=== PATIENT | female | born 1970 ===

== ENCOUNTER 2018-04-08 09:10 | Emergency (ER) | payer MEDICAID ==
[2018-04-08 09:26] VITALS: BMI 19.2
[2018-04-08 09:31] VITALS: RESP 18
[2018-04-08 09:55] LABS: URINE APPEARANCE SL CLOUDY (CLEAR); URINE BILIRUBIN NEGATIVE (NEGATIVE); URINE BLOOD SMALL (NEGATIVE); URINE COLOR YELLOW (YELLOW); URINE GLUCOSE (UA) NEGATIVE (NEGATIVE); URINE LEUKOCYTE ESTERASE NEGATIVE Leu/uL (NEGATIVE); URINE PROTEIN NEGATIVE mg/dL (<30 mg/dL); URINE UROBILINOGEN 0.2 E.U./dL (<1 E.U./dL)
[2018-04-08 10:04] LABS: URINE RBC 0 - 2 /hpf (0-2)
--- NOTE | 2018-04-08 11:14 | CT ---
Date of service: 2018-04-08 10:18:35 PROCEDURE: CT Abdomen and Pelvis. HISTORY: Back pain. COMPARISON: None. TECHNIQUE: Contiguous axial images of the abdomen and pelvis performed in standard fashion without oral or intravenous contrast material. Additional 2D sagittal and coronal reformats generated. Radiation dose: Total exam DLP = 206.81 mGy-cm. This CT exam was performed using one or more of the following dose reduction techniques: Automated exposure control, adjustment of the mA and/or kV according to patient size, and/or use of iterative reconstruction technique. FINDINGS: LOWER THORAX: Lung bases are clear. No infiltrate effusion or basilar pneumothorax. Heart size within range of normal. No significant pericardial effusion. There is a small hiatal hernia. LIVER: Liver is mildly enlarged measuring approximately 19 cm in CC dimension. No obvious hepatic mass or collection seen on this noncontrast exam.. No obvious hepatic calcifications. GALLBLADDER AND BILE DUCTS: Gallbladder physiologically distended. No evidence of intraluminal gallbladder calculi. PANCREAS: The pancreas is unremarkable without mass collection or calcification. SPLEEN: Spleen exhibits normal size and attenuation pattern without mass collection or calcification. ADRENALS: There are no adrenal lesions seen. KIDNEYS AND URETERS: Kidneys demonstrate relatively symmetric size. No evidence of nephrolithiasis or hydronephrosis. BLADDER: Urinary bladder is physiologically distended. No intraluminal urinary bladder calculi. REPRODUCTIVE: Unremarkable as visualized. APPENDIX: Appearing appendix. BOWEL: Evaluation of the bowel is limited due to the lack of oral contrast material. Stomach is incompletely distended with slight thick-walled appearance. Visualized loops of small bowel exhibit normal contour and caliber. No evidence of acute mechanical small bowel obstruction. There is a moderate amount of stool within the cecum and at ascending as well as transverse colon consistent with mild fecal retention. No definitive evidence of mural wall thickening. PERITONEUM: Unremarkable. No fluid collection. No free air. Small fat containing umbilical hernia. LYMPH NODES: Unremarkable. No enlarged lymph nodes. VASCULATURE: Unremarkable. No aortic aneurysm. No aortic atherosclerotic calcification or mural plaque present. BONES: Minor multilevel degenerative spondylosis of the lower thoracic and lumbar spine. There are no acute compression fractures nor retropulsed fragments. OTHER FINDINGS: None. IMPRESSION: No acute intra abdominal pathology. No evidence of nephrolithiasis or hydronephrosis.. Findings suggest mild fecal retention/constipation as detailed above.
--- NOTE | 2018-04-08 11:17 | ED PDOC ---
Arrival/HPI - General Chief Complaint: Back Pain Time Seen by Provider: 04/08/18 09:27 Historian: Patient - History of Present Illness Narrative History of Present Illness (Text): 04/08/18 10:58 48yo female present with complaint of back pain x one week. States she had similar pain 4months ago and was told by another Emergency department that she had UTI. States pain is not exacerbated or relieved by anything. Did not take any medication. Denies hematuria, fever, chills, urinary symptoms, abdominal pain, trauma, urinary/fecal incontinence, saddle anesthesia, any other complaint. Past Medical History - Provider Review Nursing Documentation Reviewed: Yes - Infectious Disease Hx of Infectious Diseases: None - Reproductive Currently : No - Pulmonary Hx Asthma: Yes - Psychiatric Hx Anxiety: Yes Hx Substance Use: Yes Family/Social History - Physician Review Nursing Documentation Reviewed: Yes Family/Social History: Unknown Family HX Smoking Status: Never Smoked Hx Alcohol Use: No Hx Substance Use: Yes Substance used: marijuana Allergies/Home Meds Allergies/Adverse Reactions: Allergies No Known Allergies Allergy (Verified 04/08/18 09:26) Review of Systems - Physician Review All systems were reviewed & negative as marked: Yes - Review of Systems Constitutional: Normal Eyes: Normal ENT: Normal Respiratory: Normal Cardiovascular: Normal Gastrointestinal: Normal Genitourinary Female: Normal Musculoskeletal: Back Pain Skin: Normal Neurological: Normal Endocrine: Normal Hemo/Lymphatic: Normal Psychiatric: Normal Physical Exam Vital Signs Reviewed: Yes Vital Signs Temp Pulse Resp BP Pulse Ox 04/08/18 09:30 98.8 F 56 L 18 120/79 100 Temperature: Afebrile Blood Pressure: Normal Pulse: Regular Respiratory Rate: Normal Appearance: Positive for: Well-Appearing, Non-Toxic, Comfortable Pain Distress: None Mental Status: Positive for: Alert and Oriented X 3 - Systems Exam Head: Present: Atraumatic, Normocephalic Pupils: Present: PERRL Extroacular Muscles: Present: EOMI Conjunctiva: Present: Normal Mouth: Present: Moist Mucous Membranes Neck: Present: Normal Range of Motion Respiratory/Chest: Present: Clear to Auscultation, Good Air Exchange. No: Respiratory Distress, Accessory Muscle Use Cardiovascular: Present: Regular Rate and Rhythm, Normal S1, S2. No: Murmurs Abdomen: No: Tenderness, Distention, Peritoneal Signs Back: Present: Paraspinal Tenderness (B/L paraspinous area). No: CVA Tenderness, Midline Tenderness, Pain with Leg Raise Upper Extremity: Present: Normal Inspection. No: Cyanosis, Edema Lower Extremity: Present: Normal Inspection. No: Edema Neurological: Present: GCS=15, CN II-XII Intact, Speech Normal Skin: Present: Warm, Dry, Normal Color. No: Rashes Psychiatric: Present: Alert, Oriented x 3, Normal Insight, Normal Concentration Medical Decision Making ED Course and Treatment: 04/10/18 01:46 PT presented to ED for stated history. She was not in any distress. Hemodynamically stable Her pain was controlled in ED she had moderate blood in her UA and abdominal/pelvic Ct was ordered to r/o kidney stone Abdominal pelvic CT was negative for kidney stone Result was DW the pt and she was Dc home with NSAID and referred to ortho - Lab Interpretations Lab Results: Urine Color Yellow (YELLOW) 04/08/18 09:30 Urine Appearance Sl cloudy (CLEAR) 04/08/18 09:30 Urine pH 6.0 (4.7-8.0) 04/08/18 09:30 Ur Specific [place] 1.025 (1.005-1.035) 04/08/18 09:30 Urine Protein Negative mg/dL (<30 mg/dL) 04/08/18 09:30 Urine Glucose (UA) Negative mg/dL (NEGATIVE) 04/08/18 09:30 Urine Ketones Negative mg/dL (NEGATIVE) 04/08/18 09:30 Urine Blood Small (NEGATIVE) H 04/08/18 09:30 Urine Nitrate Negative (NEGATIVE) 04/08/18 09:30 Urine Bilirubin Negative (NEGATIVE) 04/08/18 09:30 Urine Urobilinogen 0.2 E.U./dL (<1 E.U./dL) 04/08/18 09:30 Ur Leukocyte Esterase Negative Bucky/uL (NEGATIVE) 04/08/18 09:30 Urine RBC 0 - 2 /hpf (0-2) 04/08/18 09:30 Urine WBC None /hpf (0-6) 04/08/18 09:30 - RAD Interpretation Radiology Orders: 04/08/18 09:58 ABD & PELVIS W/O PO OR IV CONT [CT] Stat - Medication Orders Current Medication Orders: Discontinued Medications Ibuprofen (Motrin Tab) 600 mg PO STAT STA Stop: 04/08/18 09:37 Last Admin: 04/08/18 09:45 Dose: 600 mg MAR Pain/Vitals Document 04/08/18 09:45 GMD (Rec: 04/08/18 09:45 [place] [facility] [place] Pain Reassessment Is This A Pain ReAssessment? No Disposition/Present on Arrival - Present on Arrival Any Indicators Present on Arrival: No History of DVT/PE: No History of Uncontrolled Diabetes: No Urinary Catheter: No History of Decub. Ulcer: No History Surgical Site Infection Following: None - Disposition Have Diagnosis and Disposition been Completed?: Yes Diagnosis: Back pain Disposition: HOME/ ROUTINE Disposition Time: 11:20 Patient Plan: Discharge Condition: STABLE Discharge Instructions (ExitCare): Low Back Pain (DC) Additional Instructions: Follow up with your Doctor/orthopedist Return to Emergency department for any new or worsening symptoms Prescriptions: Cyclobenzaprine [Cyclobenzaprine HCl] 10 mg PO BID #10 tab RX: Ibuprofen [Motrin Tab] 600 mg PO Q6 #20 tab Referrals: Alex Cabezas III, MD [Medical Doctor] - Follow up with primary Forms: [employer] (Slovenian)
[2018-04-08 11:33] VITALS: BP 125/64; PULSE 69; TEMP 98.6; O2SAT 98
== END 2018-04-08 11:36 | disposition home or self-care (01) ==
LOC: ED 09:10
DX: M54.9 Dorsalgia, unspecified (principal)

== ENCOUNTER 2018-05-24 11:51 | Emergency (ER) | payer SELFPAY ==
[2018-05-24 11:51] VITALS: BMI 19.2
[2018-05-24 12:22] VITALS: BP 127/75; PULSE 98; RESP 18; TEMP 98.2; O2SAT 96
--- NOTE | 2018-05-24 12:39 | ED PDOC ---
Arrival/HPI - General Chief Complaint: Anxiety Time Seen by Provider: 05/24/18 11:53 - History of Present Illness Narrative History of Present Illness (Text): Patient reports feeling gradually anxious, states that she has been out of her anxiety meds for 4 months, cannot get a refill because she moved to [place] from [facility]. She cannot remember what medication she takes but states "it starts with oxy something". Denies SI/HI. Also reports history of asthma but denies any respiratory symptoms. Past Medical History - Provider Review Nursing Documentation Reviewed: Yes SANG Report Viewed: Yes - Travel History Have you recently traveled outside [place] w/in the past 3 mons?: No - Infectious Disease Hx of Infectious Diseases: None - Reproductive Menopause: No - Cardiac Hx Cardiac Disorders: No - Pulmonary Hx Asthma: Yes - Psychiatric Hx Anxiety: Yes Hx Substance Use: Yes Family/Social History - Physician Review Nursing Documentation Reviewed: Yes Family/Social History: Unknown Family HX Smoking Status: Never Smoked Hx Alcohol Use: No Hx Substance Use: Yes Substance used: marijuana Allergies/Home Meds Allergies/Adverse Reactions: Allergies No Known Allergies Allergy (Verified 04/08/18 09:26) Review of Systems - Review of Systems Constitutional: Normal Respiratory: Normal Cardiovascular: Normal Gastrointestinal: Normal Musculoskeletal: Normal Skin: Normal Psychiatric: Anxiety. absent: Suicidal Ideation Physical Exam Vital Signs Reviewed: Yes Vital Signs Temp Pulse Resp BP Pulse Ox 05/24/18 12:17 98.2 F 98 H 18 127/75 96 05/24/18 11:51 98.2 F 98 H 18 127/75 96 Temperature: Afebrile Blood Pressure: Normal Pulse: Regular Respiratory Rate: Normal Appearance: Positive for: Non-Toxic Mental Status: Positive for: Alert and Oriented X 3 - Systems Exam Head: Present: Atraumatic, Normocephalic Pupils: Present: PERRL Extroacular Muscles: Present: EOMI Conjunctiva: Present: Normal Mouth: Present: Moist Mucous Membranes Respiratory/Chest: Present: Clear to Auscultation Cardiovascular: Present: Regular Rate and Rhythm Abdomen: No: Tenderness, Rebound, Guarding Upper Extremity: Present: Normal Inspection Lower Extremity: Present: Normal Inspection Neurological: Present: GCS=15 Skin: Present: Warm, Dry Psychiatric: Present: Alert, Oriented x 3, Anxious Medical Decision Making ED Course and Treatment: Patient given 0.5mg Xanax PO. Denies SI/HI. Referred to behavioral health as outpatient. Stable for discharge. Disposition/Present on Arrival - Present on Arrival Any Indicators Present on Arrival: No History of DVT/PE: No History of Uncontrolled Diabetes: No Urinary Catheter: No History of Decub. Ulcer: No History Surgical Site Infection Following: None - Disposition Have Diagnosis and Disposition been Completed?: Yes Diagnosis: Anxiety Disposition: HOME/ ROUTINE Disposition Time: 13:00 Condition: STABLE Discharge Instructions (ExitCare): Anxiety, Adult (DC) Additional Instructions: FELICITA MARSH, thank you for letting us take care of you today. Your provider was Jina Nicholas MD and you were treated for anxiety. The emergency medical care you received today was directed at your acute symptoms. If you were prescribed any medication, please fill it and take as directed. It may take several days for your symptoms to resolve. Return to the Emergency Department if your symptoms worsen, do not improve, or if you have any other problems. Please contact your doctor or call one of the physicians/clinics you have been referred to that are listed on the Patient Visit Information form that is included in your discharge packet. Bring any paperwork you were given at discharge with you along with any medications you are taking to your follow up visit. Our treatment cannot replace ongoing medical care by a primary care provider outside of the emergency department. Thank you for allowing the [facility] team to be part of your care today. If you had an X-Ray or CT scan: A Radiologist will review the ED reading if any change in treatment is needed we will contact you. If you had a blood, urine, or wound culture: It will take several days for the results, if any change in treatment is needed we will contact you. If you had an STI test: It will take 48 hours for the results. Please call after 1 week if you have not heard back. Referrals: [facility] [Outside] - Follow up with primary Forms: [employer] (Martiniquais)
== END 2018-05-24 13:47 | disposition home or self-care (01) ==
LOC: ED 11:51
DX: F41.9 Anxiety disorder, unspecified (principal)

== ENCOUNTER 2018-06-11 09:23 | Emergency (ER) | payer MEDICAID ==
[2018-06-11 09:24] VITALS: BMI 19.2
[2018-06-11 09:36] VITALS: RESP 18; TEMP 97.9
--- NOTE | 2018-06-11 09:55 | ED PDOC ---
Arrival/HPI - General Chief Complaint: Shortness Of Breath Time Seen by Provider: 06/11/18 09:40 Historian: Patient - History of Present Illness Narrative History of Present Illness (Text): 06/11/18 09:53 A 48 year old female, whose past medical history includes asthma, presents to the emergency department complaining of cough for few days. Patient reports she has been using her inhaler more. Patient denies any chest pain, fever, chills, or any other complaints at this time. Denies recent use of steroids and denies history of intubation. Time/Duration: < week (couple days) Past Medical History - Provider Review Nursing Documentation Reviewed: Yes - Infectious Disease Hx of Infectious Diseases: None - Reproductive Menopause: No - Cardiac Hx Cardiac Disorders: No - Pulmonary Hx Asthma: Yes - Psychiatric Hx Anxiety: Yes Hx Substance Use: Yes - Anesthesia Hx Anesthesia: No Family/Social History - Physician Review Nursing Documentation Reviewed: Yes Family/Social History: No Known Family HX Smoking Status: Never Smoked Hx Alcohol Use: No Hx Substance Use: Yes Substance used: marijuana Allergies/Home Meds Allergies/Adverse Reactions: Allergies No Known Allergies Allergy (Verified 04/08/18 09:26) Review of Systems - Physician Review All systems were reviewed & negative as marked: Yes - Review of Systems Constitutional: absent: Fevers, Night Sweats Respiratory: Cough Physical Exam - Physical Exam Narrative Physical Exam (Text): Gen: NAD, cooperative, well appearing, non-toxic. Head: NCAT. HEENT: EYES: PERRL, EOMI, conjunctiva clear MOUTH: moist MM, posterior pharynx without erythema or exudate, uvula midline. CV: (+) S1S2, RRR, no M/G/R LUNGS: CTA B/L, scattered rhonchi, diffuse expiratory wheezing, no rales, good air movement Abd: Soft, NTTP, no guarding, rebound or rigidity. Neuro: AAO x 3, GCS 15, CN 2-12 intact, motor and sensory grossly intact, 5/5 muscle strength B/L UE's and LE's. ext: no cyanosis or edema Vital Signs Reviewed: Yes Vital Signs Temp Pulse Resp BP Pulse Ox 06/11/18 09:31 97.9 F 95 H 18 108/68 96 Temperature: Afebrile Blood Pressure: Normal Pulse: Regular Respiratory Rate: Normal Appearance: Positive for: Well-Appearing, Non-Toxic, Comfortable Pain Distress: None Mental Status: Positive for: Alert and Oriented X 3 Medical Decision Making ED Course and Treatment: 06/11/18 09:54 Impression: 48 year old female with cough. Physical exam shows scattered rhonchi, good air exchange, perfuse expiratory wheezing. Plan: -- Duoneb -- Prednisone -- Reassess and disposition Progress Notes: 06/11/18 11:10 Patient states she is feeling better at this time and breath sounds have improved. Patient to be discharged home. - Medication Orders Current Medication Orders: Albuterol/Ipratropium (Duoneb 3 Mg/0.5 Mg (3 Ml) Ud) 3 ml IH Q15M LEANDRO Stop: 06/11/18 10:31 Discontinued Medications Prednisone (Prednisone Tab) 60 mg PO STAT ONE Stop: 06/11/18 09:47 - Scribe Statement The provider has reviewed the documentation as recorded by the Janice Landeros Provider Scribe Attestation: All medical record entries made by the Scribe were at my direction and personally dictated by me. I have reviewed the chart and agree that the record accurately reflects my personal performance of the history, physical exam, medical decision making, and the department course for this patient. I have also personally directed, reviewed, and agree with the discharge instructions and di sposition. Disposition/Present on Arrival - Present on Arrival Any Indicators Present on Arrival: No History of DVT/PE: No History of Uncontrolled Diabetes: No Urinary Catheter: No History of Decub. Ulcer: No History Surgical Site Infection Following: None - Disposition Have Diagnosis and Disposition been Completed?: Yes Diagnosis: Asthma exacerbation Disposition: HOME/ ROUTINE Disposition Time: 11:13 Patient Plan: Discharge Patient Problems: Current Active Problems Problem Status Onset Asthma exacerbation Acute Condition: IMPROVED Discharge Instructions (ExitCare): Asthma, Adult (DC) Additional Instructions: FELICITA MARSH, thank you for letting us take care of you today. Your provider was Aurora Cardona MD and you were treated for asthma. The emergency medical care you received today was directed at your acute symptoms. If you were prescribed any medication, please fill it and take as directed. It may take several days for your symptoms to resolve. Return to the Emergency Department if your symptoms worsen, do not improve, or if you have any other problems. Please contact your doctor or call one of the physicians/clinics you have been referred to that are listed on the Patient Visit Information form that is included in your discharge packet. Bring any paperwork you were given at discharge with you along with any medications you are taking to your follow up visit. Our treatment cannot replace ongoing medical care by a primary care provider outside of the emergency department. Thank you for allowing the [email or web address] team to be part of your care today. Prescriptions: predniSONE [Prednisone] 40 mg PO DAILY #10 tab Referrals: Radha Johnson MD [Medical Doctor] - Follow up with primary [employer] [facility] [Outside] - Follow up with primary [facility] [place]Outside] - Follow up with primary Forms: [employer] (Ukrainian)
[2018-06-11] MEDS: Albuterol-Ipratrop 3 mg / 0.5 (3 ml) UD IH SCH ×3 (10:11→10:42)
[2018-06-11 11:52] VITALS: BP 110/68; PULSE 88; O2SAT 97
== END 2018-06-11 11:56 | disposition home or self-care (01) ==
LOC: ED 09:23
DX: J45.901 Unspecified asthma with (acute) exacerbation (principal)

== ENCOUNTER 2018-07-08 07:06 | Emergency (ER) | payer MEDICAID ==
--- NOTE | 2018-07-08 07:22 | ED PDOC ---
Arrival/HPI - General Chief Complaint: Respiratory Distress Time Seen by Provider: 07/08/18 07:13 - History of Present Illness Narrative History of Present Illness (Text): 07/08/18 07:29 48 f with hx of asthma presents to the ED with chief complaint of cough, wheezing, and shortness of breath. Onset of symptoms 3 weeks ago, patient reports she was seen 2 weeks ago in the ED with marginal improvement in symptoms. Patient states her boyfriend "got sick" with cold like symptoms,then the patient developed runny nose, dry cough, subjective fevers, and chills. Patient denies headache, no vomit, no diarrhea, no rash, no edema. Patient presents to be awake and alert, mildly tachypneic, talking in full sentences. Past Medical History - Provider Review Nursing Documentation Reviewed: Yes - Infectious Disease Hx of Infectious Diseases: None - Cardiac Hx Cardiac Disorders: No - Pulmonary Hx Asthma: Yes - Psychiatric Hx Anxiety: Yes Hx Substance Use: Yes - Anesthesia Hx Anesthesia: No Family/Social History - Physician Review Nursing Documentation Reviewed: Yes Family/Social History: Unknown Family HX Smoking Status: Never Smoked Hx Alcohol Use: No Hx Substance Use: Yes Substance used: marijuana Allergies/Home Meds Allergies/Adverse Reactions: Allergies No Known Allergies Allergy (Verified 04/08/18 09:26) Review of Systems - Physician Review All systems were reviewed & negative as marked: Yes Physical Exam - Physical Exam Narrative Physical Exam (Text): 07/08/18 07:33 Gen: VS reviewed, alert, well developed, well nourished, nontoxic, mild distress Eye: EOMI, PERRL Neck: no JVD, supple, no adenopathy CV: regular rate, regular rhythm, no rubs,no murmur, S1, S2 Pulm: tachypneic, mild to moderate bilateral expiratory wheeze, fair air exchange bilat, no rales Abd: soft, nontender, no guarding, no rebound, no rigidity Ext: no edema Skin: good color, no rash, no cyanosis Psych: responds appropriately to questions, normal affect Neuro: oriented x3, CN2-12 intact grossly, motor intact, sensation intact Vital Signs Temp Pulse Resp BP Pulse Ox 07/08/18 07:21 98.0 F 82 18 126/77 95 Medical Decision Making ED Course and Treatment: 05/03/19 07:22 Differential Diagnosis included but are not limited to: uri, astham exac, viral syndrome Plan: labs, cxr rule out pneumonia, nebs, steroids, clinical reassessment Progress Notes: 07/08/18 09:18 patient reports improvement in her breathing, repeat lung exam there is scant bilat exp wheeze, good air exchange, will do one more neb tx and plan for di scharge. 07/08/18 10:14 patient reports near resolution of symptoms, repeat lung exam clear to ausc, no wheezing, stable for dc - RAD Interpretation Narrative RAD Interpretations (Text): 07/08/18 09:20 Chest X-ray reviewed by Madina Brunson MD, shows: No acute findings identified. [employer]: Radiologist - Scribe Statement The provider has reviewed the documentation as recorded by the Andreiaibdeirdre Kebede All medical record entries made by the Andreiaibe were at my direction and personally dictated by me. I have reviewed the chart and agree that the record accurately reflects my personal performance of the history, physical exam, medical decision making, and the department course for this patient. I have also personally directed, reviewed, and agree with the discharge instructions and disposition. Disposition/Present on Arrival - Present on Arrival Any Indicators Present on Arrival: No History of DVT/PE: No History of Uncontrolled Diabetes: No Urinary Catheter: No History of Decub. Ulcer: No History Surgical Site Infection Following: None - Disposition Have Diagnosis and Disposition been Completed?: Yes Diagnosis: Asthma exacerbation Disposition: HOME/ ROUTINE Disposition Time: 10:15 Patient Plan: Discharge Condition: STABLE Additional Instructions: return for any new or worsening symptoms. use your albuterol inhaler every 4 hours while awake for the next 3 days. then go back to using as needed. Prescriptions: Prednisone [Deltasone] 20 mg PO DAILY 5 Days #10 tablet Referrals: [facility] [place] [Outside] - Follow up with primary Forms: [employer] (South Korean), WORK NOTE
[2018-07-08 07:25] VITALS: TEMP 98; BMI 19.5
[2018-07-08] MEDS: Albuterol-Ipratrop 3 mg / 0.5 (3 ml) UD IH SCH ×3 (07:58→08:29)
[2018-07-08 08:05] LABS: EOS % 0.6 % (1.5-5.0); HEMOGLOBIN 12.2 g/dL (12.0-16.0); LYMPH # 1.5 (1.2-3.4); MEAN CELL VOLUME 93.7 fl (80.0-105.0); MEAN CORPUSCULAR HEMOGLOBIN 30.8 pg (25.0-35.0); MEAN CORPUSCULAR HGB CONC 32.9 g/dl (31.0-37.0); MEAN PLATELET VOLUME 9.9 fl (7.0-11.0); MONO # 0.7 (0.1-0.6); MONO % 13.6 % (1.0-6.0); RBC 3.96 10^6/uL (3.5-6.1); RED CELL DISTRIBUTION WIDTH 13.2 % (11.5-14.5); WHITE BLOOD COUNT 4.8 10^3/uL (4.5-11.0)
[2018-07-08 08:11] LABS: BLOOD UREA NITROGEN 15 mg/dL (7-21); CALCIUM 9.3 mg/dL (8.4-10.5); GFR NON-AFRICAN AMERICAN > 60
--- NOTE | 2018-07-08 09:17 | RAD ---
HISTORY: cough, pneumonia COMPARISON: None available. TECHNIQUE: Chest PA and lateral, 2 views FINDINGS: LUNGS: No focal consolidation. Please note that chest x-ray has limited sensitivity for the detection of pulmonary masses. PLEURA: No significant pleural effusion identified. No definite pneumothorax . CARDIOVASCULAR: The cardiomediastinal silhouette appears within normal limits of size. No atherosclerotic calcification present. OSSEOUS STRUCTURES: No acute osseous abnormality identified. VISUALIZED UPPER ABDOMEN: Unremarkable. OTHER FINDINGS: None. IMPRESSION: No acute findings identified.
[2018-07-08] MEDS ORDERED: Albuterol 0.083% Inhal Sol (2.5 mg/3 mL) UD INH STA (09:19)
[2018-07-08 10:24] VITALS: BP 119/68; PULSE 72; RESP 16; O2SAT 99
== END 2018-07-08 10:23 | disposition home or self-care (01) ==
LOC: ED 07:06
DX: J45.901 Unspecified asthma with (acute) exacerbation (principal)